=== PATIENT | male | born 1965 | race Asian ===

== ENCOUNTER 2018-05-12 22:40 | Emergency (ER) | payer OTHER ==
[~2018-05-12] VITALS: Ht 180.3 cm; Wt 81.6 kg
--- NOTE | 2018-05-12 22:59 | Emergency Room Report ---
History of Present Illness General Chief Complaint: Altered Level of Consciousness Source: Patient, Medical Record Present Illness HPI This is a 52-year-old [place] male with psychiatric history. He was brought in by EMS for altered mental status. Someone found him slumped over in his car in a hotel parking lot. The car was running. He was unresponsive. EMS brought on the door. He was drooling in not responding very well. They found an empty bottle of Lunesta. Patient was able to give somewhat of a history. He said he took the whole bottle. He said there was about 60 pills left. I checked the [facility] system and he gets 100 tablets of Lunesta monthly. Last refill was May 02. He also get refills on lorazepam. Patient cannot confirm to me with intent. He did not express suicidal thoughts or homicidal thought. But he did say [id number] several times to EMS. Allergies: Coded Allergies: No Known Allergies (Unverified , 05/12/18) Patient History Past Medical History: see triage record, old chart reviewed Past Surgical History: none Pertinent Family History: none Social History: Denies: smoking Immunizations: other Reviewed Nursing Documentation: PMH: Agreed; PSxH: Agreed Nursing Documentation-PMH Past Medical History Deferred: Pt Cognitively Impaired Past Medical History: No Stated History Review of Systems Eye: Denies: eye pain, blurred vision ENT: Denies: ear pain, nose congestion, throat swelling Respiratory: Denies: cough, shortness of breath Cardiovascular: Denies: chest pain, palpitations Gastrointestinal: Denies: abdominal pain, diarrhea, nausea, vomiting Musculoskeletal: Denies: back pain, joint pain Skin: Denies: rash Neurological: Denies: headache, numbness Endocrine: Denies: increased thirst, increased urine Hematologic/Lymphatic: Denies: easy bruising All Other Systems: negative except mentioned in HPI Physical Exam Vital Signs Date Time Temp Pulse Resp B/P (MAP) Pulse Ox O2 Delivery O2 Flow Rate FiO2 05/12/18 22:38 97.9 79 18 106/76 96 Room Air labs unremarkable Sp02 EP Interpretation: reviewed, normal General Appearance: well appearing, no apparent distress, lethargic - Sleepy Head: normocephalic, atraumatic Eyes: bilateral eye PERRL, bilateral eye EOMI ENT: hearing grossly normal, normal pharynx Neck: full range of motion, supple, no meningismus Respiratory: chest non-tender, lungs clear, normal breath sounds Cardiovascular #1: regular rate, rhythm, no murmur Gastrointestinal: normal bowel sounds, non tender, no mass, no organomegaly, no bruit, non-distended Musculoskeletal: back normal, normal range of motion Neurologic: grossly normal Psychiatric: mood/affect normal Skin: warm/dry Medical Decision Making Diagnostic Impression: Primary Impression: Altered level of consciousness Additional Impressions: Overdose Qualified Codes: T50.902A - Poisoning by unspecified drugs, medicaments and biological substances, intentional self-harm, initial encounter Elevated troponin I level Suicidal overdose Qualified Codes: T50.902A - Poisoning by unspecified drugs, medicaments and biological substances, intentional self-harm, initial encounter Methamphetamine abuse Abnormal LFTs ER Course Patient presents with an overdose of Lunesta. Also positive for amphetamine. He does have a history of methamphetamine abuse. With the amount of overdose, concerning for tension attempt/suicidal attempt. Patient is slowly waking up. There is no focal deficit. No evidence of any trauma or focal deficit to warrant a CT scan. His troponin is intermediate. He has no chest pain complaint. EKG normal. I discussed the case with poison control who recommended supportive care. Does say that Lunesta can affect liver enzyme elevation. Discussed case with Dr. Inman at [facility]. He accepted the patient for transfer. . Lab Results Impression labs with intermittent troponin and elevated LFTs. EKG Diagnostic Results Rate: normal Rhythm: NSR ST Segments: no acute changes Rhythm Strip Diag. Results Rhythm Strip Time: 00:15 EP Interpretation: yes Rate: 79 Rhythm: NSR, no PVC's, no ectopy Chest X-Ray Diagnostic Results Chest X-Ray Diagnostic Results : Chest X-Ray Ordered: Yes # of Views/Limited/Complete: 1 View Indication: Chest Pain EP Interpretation: Yes Interpretation: no consolidation, no effusion, no pneumothorax, no acute cardiopulmonary disease Impression: No acute disease Electronically Signed by: Song Thomas MD Last Vital Signs Date Time Temp Pulse Resp B/P (MAP) Pulse Ox O2 Delivery O2 Flow Rate FiO2 05/12/18 22:38 97.9 79 18 106/76 96 Room Air Status: improved Disposition: XFER SHT-TRM HOSP Condition: Stable Song Thomas MD May 12, 2018 22:59
[2018-05-12 23:11] LABS: BASOPHILS % (AUTO) 1.1 % (0.0-2.0); EOSINOPHILS % (AUTO) 0.6 % (0.0-3.0); HEMATOCRIT 44.7 % (42.0-52.0); HEMOGLOBIN 14.9 G/DL (14.2-18.0); MEAN CORPUSCULAR VOLUME 90 FL (80-99); MONOCYTES % (AUTO) 8.6 % (1.0-10.0); NEUTROPHILS % (AUTO) 61.8 % (45.0-75.0); PLATELET COUNT 235 K/UL (150-450); RED BLOOD COUNT 4.99 M/UL (4.70-6.10); RED CELL DISTRIBUTION WIDTH 12.3 % (11.6-14.8); WHITE BLOOD COUNT 13.7 K/UL (4.8-10.8)
[2018-05-12 23:17] VITALS: BP 107/73
[2018-05-12 23:25] LABS: ANION GAP 8 mmol/L (5-15); BLOOD UREA NITROGEN 29 mg/dL (7-18); CALCIUM 10.1 MG/DL (8.5-10.1); CARBON DIOXIDE 30 MMOL/L (21-32); CHLORIDE 103 MMOL/L (98-107); CREATININE 1.1 MG/DL (0.55-1.30); POTASSIUM 4.2 MMOL/L (3.5-5.1); SODIUM 141 MMOL/L (136-145)
[2018-05-12 23:36] LABS: ALANINE AMINOTRANSFERASE 164 U/L (12-78); ALBUMIN 4.3 G/DL (3.4-5.0); ALBUMIN/GLOBULIN RATIO 0.9 (1.0-2.7); ALKALINE PHOSPHATASE 72 U/L (46-116); ASPARTATE AMINO TRANSFERASE 290 U/L (15-37); BILIRUBIN,TOTAL 1.3 MG/DL (0.2-1.0)
[2018-05-12 23:37] LABS: BILIRUBIN,DIRECT 0.3 MG/DL (0.0-0.3)
[2018-05-12 23:46] LABS: BILIRUBIN, URINE NEGATIVE (NEGATIVE); GLUCOSE, URINE (UA) NEGATIVE (NEGATIVE); KETONES,URINE 1+ (NEGATIVE); LEUKOCYTE ESTERASE ,URINE 1+ (NEGATIVE); NITRITE,URINE NEGATIVE (NEGATIVE); PH,URINE 5 (4.5-8.0); PROTEIN,URINE 3+ (NEGATIVE); UROBILINOGEN,URINE 1 MG/DL (0.0-1.0)
[2018-05-12 23:52] LABS: APPEARANCE,URINE CLOUDY; COLOR,URINE YELLOW
[2018-05-13] MEDS ORDERED: cefTRIAXone 1 GM in NS 55 ML IVPB ONE (00:15)
[2018-05-13 01:25] VITALS: BP 107/73
[2018-05-13 02:26] VITALS: BP 109/69
[2018-05-13 03:54] VITALS: BP 100/67
[2018-05-13 04:48] VITALS: BP 104/72
--- NOTE | 2018-05-13 11:43 | Diagnostic Imaging Report ---
Indication: Chest pain Comparison: None A single view chest radiograph was obtained. Findings: Basilar densities demonstrated likely atelectasis. Heart size is borderline. Bones are unremarkable. IMPRESSION: Suggestion of mild basal atelectasis
--- NOTE | 2018-05-13 14:58 | Cardiology Report ---
APPROVED REPORT EKG Measurement Heart [id number] Normal sinus rhythm Normal ECG
== END 2018-05-13 05:19 | disposition short-term general hospital (02) ==
LOC: EDBD 22:40 → EMR 22:55
DX: R41.82 Altered mental status, unspecified (principal); T42.6X2A Poisoning by other antiepileptic and sedative-hypnotic drugs, intentional self-harm, initial encounter; Y92.481 Parking lot as the place of occurrence of the external cause; R79.89 Other specified abnormal findings of blood chemistry; R94.5 Abnormal results of liver function studies; F15.10 Other stimulant abuse, uncomplicated
CPT/HCPCS: 36415; 71045; 80053; 80307; 81003; 82248; 84484; 85025; 87086; 93005; 96361; 96365; 99285; G0480; J0696; 80329